=== PATIENT | female | born 1965 | race Caucasian/White ===

== ENCOUNTER 2016-11-14 09:39 | Emergency (ER) | payer SELFPAY ==
--- NOTE | 2016-11-14 11:59 | ED ORDER SUMMARY ---
..... Patient: GWYN GUILLEN OrderSheet [facility] VisitID: [id number] [place] [address] 51y, F Registration Date/Time: 11/14/2016 ORDER SHEET Weight: 56.6 kg (stated) Allergies: No Known Drug Allergy GENERAL ORDERS: CBC w Diff Urgent (10:11/14/2016 Chris WILSON) (Ack 10:04 Stacia) (10:22 SRoberts R.N.) CMP Urgent (:11/14/2016 Chris WILSON) (Ack 10:04 Stacia) (10:22 SRoberts R.N.) Amylase Urgent (:11/14/2016 Chris WILSON) (Ack 10:04 Stacia) (10:22 SRoberts R.N.) Lipase Urgent (:11/14/2016 Chris WILSON) (Ack 10:04 Stacia) (10:22 SRoberts R.N.) UA-Culture if indicated Urgent (:11/14/2016 Chris WILSON) (Ack 10:04 Stacia) (11:32 LWhalen R.N.) PT with INR Urgent (:11/14/2016 Chris WILSON) (Ack 10:04 Stacia) (10:22 SRoberts R.N.) PTT Urgent (10:11/14/2016 Chris WILSON) (Ack 10:04 Stacia) (10:22 SRoberts R.N.) Type & Screen Urgent (10:11/14/2016 Chris WILSON) (Ack 10:04 Stacia) (10:22 SRoberts R.N.) Ethyl Alcohol Urgent (10:11/14/2016 Chris WILSON) (Ack 10:30 Stacia) (11:32 LWhalen R.N.) MEDICATION ORDERS: GI Cocktail WHITE PO 30 mL with Lidocaine Viscous Mouth/Throat 15 mL, Maalox Plus Oral 15 mL (11:17 11/14/2016 Chris WILSON) (11:33 LWhalen R.N.) IV FLUIDS: IV Saline Lock (10:11/14/2016 Chris WILSON) (10:23 Dai Tirado.N.) Protonix IVP 80mg 80 mg (Mix in NS 20ml over 4min) (10:11/14/2016 Chris WILSON) (10:43 Juan J R.N.) IV Saline Lock (2 large bore IV sites) (10:11/14/2016 Chris WILSON) (Ack 10:44 Juan J R.N.) (11:33 Juan J R.N.) ORDER SHEET NOTES: [Electronically signed by Alexandra Sellers R.N. (13:05 11/14/2016)] [Electronically signed by Wing Adame MD (18:59 11/14/2016)] [Electronically locked/signed by Alexandra Sellers R.N. (13:11/14/2016)]
--- NOTE | 2016-11-14 11:59 | ED CLINICAL REPORT ---
Clinical Report - Physicians/Mid Levels [facility] [address] [place] [address] 11/14/2016 9:38 Patient: GWYN GUILLEN Time Seen: 10:00. Arrived- By private vehicle. Historian- patient. HISTORY OF PRESENT ILLNESS Chief Complaint: ABDOMINAL PAIN. At its maximum, severity described as 7 / 10. When seen in the E.D., severity described as 6 / 10. Modifying factors- worsened by food and swallowing. It is described as burning. No radiation. It is described as located in the epigastric area and in the upper abdomen. This started about 1 week ago and is still present. It was gradual in onset and has been intermittent and waxing/waning. No nausea, vomiting or diarrhea. She has had loss of appetite. No recent travel. Similar symptoms previously: Several times. REVIEW OF SYSTEMS The patient has had constipation and a cough and headache. Last bowel movement: 3 days ago. She has had mildly bloody stools. They have occurred several times and have been associated with bright red blood on the paper. No chills, fever, sweats, calf pain or chest pain. No difficulty breathing, pedal edema, palpitations or urinary problems. All systems otherwise negative, except as recorded above. PAST HISTORY PCP - Goncalves at the [facility]. SOCIAL HISTORY Current every day heavy tobacco smoker (cigarette)- 1 pack per day. Heavy alcohol use; consumes a large amount of beer daily. Patient is alcoholic. History of drug use: marijuana. Residence: [facility] she lives with spouse. FAMILY HISTORY Emphysema in first-degree relative (mother and father). ADDITIONAL NOTES The nursing notes have been reviewed. PHYSICAL EXAM Vital Signs: 11/14/2016 09:48 BP: 160/105. HR: 118. RR: 20. O2 saturation: 97%. Temp: 98.1 F. Appearance: Alert. Eyes: Pupils equal, round and reactive to light. ENT: Pharynx normal. Neck: Neck supple. CVS: Normal heart rate and rhythm. Heart sounds normal. Respiratory: No respiratory distress. Breath sounds normal. Abdomen: Soft and nontender. Moderate tenderness in the epigastric area. No organomegaly. No mass. Back: Normal inspection. Skin: Normal skin color. Normal skin turgor. Extremities: Extremities exhibit normal ROM. No calf tenderness. No lower extremity edema. LABS, X-RAYS, AND EKG Laboratory Tests: UA-Culture if indicated: (MALOU: 11/14/2016 10:50) ( [facility] 11/14/2016 11:06) Final results Test Result Flag Units (Reference) URINE COLOR YELLOW URINE APPEARANCE CLEAR URINE GLUCOSE NEGATIVE (NEGATIVE) URINE BILIRUBIN NEGATIVE (NEGATIVE) URINE KETONE TRACE (NEGATIVE) URINE SPECIFIC GRAVITY 1.010 (1.010-1.030) URINE PH 5.5 (5.0-8.0) URINE PROTEIN NEGATIVE (NEGATIVE) URINE UROBILINOGEN 0.2 EU/dL (0.2-1.0) URINE NITRITE NEGATIVE (NEGATIVE) URINE BLOOD 1+ (NEGATIVE) URINE LEUK ESTERASE NEGATIVE (NEGATIVE) URINE RBC 0-1 rbc/hpf (0-1) URINE WBC 0-1 wbc/hpf (0-1) URINE EPITHELIAL CELLS 0-1 EPI/hpf (0-5) URINE BACTERIA TRACE (<1+) (NONE SEEN) URINE COMMENT CULT NOT INDICATED 1-3 HYALINE CASTURINE CULTURES ARE SET-UP BASED ON THE FOLLOWING CRITERIA:POSITIVE NITRITEPOSITIVE LEUKOCYTE ESTERASEGREATER THAN 10 WHITE BLOOD CELLSMODERATE (2+) OR GREATER BACTERIA CBC w Diff: (MALOU: 11/14/2016 10:17) ( [facility] 11/14/2016 10:41) Final results Test Result Flag Units (Reference) WHITE BLOOD COUNT 12.2 H K/uL (4.5-11.5) RED BLOOD COUNT 4.30 M/uL (4.00-5.20) HEMOGLOBIN 15.6 gm/dL (12.0-16.0) HEMATOCRIT 45.5 % (36.0-46.0) MEAN CELL VOLUME 106 H fL (80-100) MEAN CORPUSCULAR HGB 36 H pg (26-34) MEAN CORPUSCULAR HGB CONC 34 g/dL (31-37) RED CELL DISTRIBUTION WIDTH 15.4 H % (11.6-14.8) PLATELET COUNT 158 K/uL (150-400) NEUTROPHIL % 73.2 % (50-75) LYMPH % 20.2 L % (25-40) MONO % 6.0 % (3-14) EOSINOPHIL % 0.1 % (0-4) BASOPHIL % 0.5 % (0-2) PT with INR: (MALOU: 11/14/2016 10:17) ( [facility] 11/14/[facility] 10:47) Final results Test Result Flag Units (Reference) INR 0.9 (0.8-1.2) Low Intensity Therapy: INR 1.5-2.0 PT range 18.5-23.1Mod.Intensity Therapy: INR 2.0-3.0 PT range 23.1-31.5High Intensity Therapy: INR 2.5-3.5 PT range 27.4-35.5High Intensity Therapy 2: INR 3.0-4.0 PT range 31.5-39.3 APTT 27 SECONDS (24-34) CMP: (MALOU: 11/14/2016 10:17) ( [facility] 11/14/2016 11:19) Final results Test Result Flag Units (Reference) GLUCOSE 84 mg/dL (70-110) BUN 8 mg/dL (7-18) CREATININE 0.7 mg/dL (0.6-1.3) Estimated GFR >60 mL/min Estimated GFR- >60 mL/min Note: Persistent reduction over 3 months in eGFR<60 mL/min/1.73 m2 defines CKD. Patients with eGFR values>=60 mL/min/1.73 m2 may also have CKD if evidence ofpersistent proteinuria. Additional information may be foundat www.kidney.org. SODIUM 142 mmol/L (136-145) POTASSIUM 3.8 mmol/L (3.5-5.1) CHLORIDE 105 mmol/L (98-107) CARBON DIOXIDE 22 mmol/L (21-32) CALCIUM 7.4 L mg/dL (8.5-10.1) TOTAL PROTEIN 6.6 g/dL (6.4-8.2) ALBUMIN 3.6 g/dL (3.3-5.0) BILIRUBIN, TOTAL 0.3 mg/dL (0.0-1.0) ALKALINE PHOSPHATASE 63 U/L (46-116) AST (SGOT) 43 H U/L (15-37) ALT (SGPT) 21 U/L (12-78) LIPASE 60 L U/L (73-393) AMYLASE 37 U/L (25-115) ETHYL ALCOHOL 229 H mg/dL (3-10) . PROGRESS AND PROCEDURES Course of Care: Patient is stable. Patient/family counseled. Old medical records reviewed. Disposition: Discharged. Condition: stable. CLINICAL IMPRESSION Alcoholic gastritis Substance abuse- alcohol. External hemorrhoids INSTRUCTIONS Drink plenty of fluids. No alcohol. Seek medical help to quit drinking. Warnings: Further evaluation is necessary. GENERAL WARNINGS: Return or contact your physician immediately if your condition worsens or changes unexpectedly, if not improving as expected, or if other problems arise. Prescription Medications: Omeprazole 20 mg capsules: Take 1 orally once daily. Dispense fifteen (15). No refills. Follow-up: Follow up with your doctor Thursday in three days. Call for an appointment. Understanding of the discharge instructions verbalized by patient. (Electronically signed by Wing Adame MD 11/14/2016 18:59)
--- NOTE | 2016-11-14 11:59 | ED NURSING NOTES ---
Clinical Report - Nurses [facility] [address] [place] [address] 11/14/2016 9:38 Patient: GWYN GUILLEN TRIAGE Triage time 09:48 Nov 14 2016. Acuity: LEVEL 3. Chief Complaint: HEADACHE, DIZZINESS, WEAKNESS, CONSTIPATION, ABDOMINAL PAIN and BLOODY STOOLS (Abdominal pain). RIGO COMA SCORE: [place] Coma Scale: 15- eyes open spontaneously (4); best verbal response- oriented x 4 (5); best motor response- obeys commands (6). --09:54 Daniel Chaparro R.N. 09:48 11/14/16. BP: 160/105. HR: 118. RR: 20. O2 saturation: 97%. Temp: 98.1 F. Pain level now 7/10. --09:54 Daniel Chaparro R.N. Weight: 56.6 kg stated. Height/Length: 61 inches Per Patient. BMI: 23.6. --09:49 Daniel Chaparro R.N. Medications Citalopram Hydrobromide Oral. --09:53 Daniel Chaparro R.N. Lisinopril Oral. --09:53 Daniel Chaparro R.N. AmLODIPine Besylate Oral. --09:54 Daniel Chaparro R.N. Atorvastatin Calcium Oral. --09:54 Daniel Chaparro R.N. Allergies No Known Drug Allergy. --09:52 Daniel Chaparro R.N. History Arrived by private vehicle. Historian: patient. Accompanied by family. Onset. (Past three days). ( Has been on a drinking binger for three days having emotional problems and severe abdominal pains with red discharge from buttocks no stool in three days.). PAST MEDICAL HX: Immunizations: up-to-date. SOCIAL HX: Current every day heavy tobacco smoker (cigarette)- 1 pack per day. Heavy alcohol use; consumes beer daily. History of drug use: marijuana. SELF HARM ASSESSMENT: A self harm assessment was performed. The patient answered "yes" to the question "Have you recently felt down, depressed, or hopeless?" and "Have you noticed less interest or pleasure in doing things?" and "no" to the question "Do you have thoughts of harming or killing yourself?" and "Are you here because you tried to hurt yourself?". FALL RISK ASSESSMENT: Fall risk assessment completed. No fall risk identified. NUTRITIONAL RISK ASSESSMENT: The nutritional risk assessment revealed no deficiencies. FUNCTIONAL ASSESSMENT: Functional assessment: no impairments noted. LEARNING NEEDS ASSESSMENT: The learning needs assessment revealed no barriers. ABUSE ASSESSMENT: Abuse assessment: (yes) The patient was asked "Do you feel safe in your home?". SKIN INTEGRITY ASSESSMENT: Skin integrity risk assessment completed. No skin integrity risk identified. --09:54 Daniel Chaparro R.N. PROBLEMS: Hyperlipidemia. Thyroid Disease. Contusion. Fall. Alcoholic Liver Disease. Peptic Ulcer Disease. Abdominal Pain. Bronchitis. Rectal Bleed. Tension-Type Headache. Alcohol Intoxication. Depression. Suicidal Ideation. Gastritis. Pancreatitis. Rib Fracture. Tetanus Status. LNMP - Last Normal Menstrual Period. Cervical Cancer. Carotid Artery Disease. Lifestyle / Substance Problems. Hypertension. Immunizations. Nervous breakdown. --09:54 Daniel Chaparro R.N. ADDITIONAL SURGERIES: Cervical conization. . --09:54 Daniel Chaparro R.N. Interventions ID band on patient. --09:54 Daniel Chaparro R.N. PHYSICAL ASSESSMENT Ambulatory to room. GENERAL / NEURO / PSYCH: Alert. Oriented X 4. Appears anxious. HEENT: Pupils equal, round and reactive to light. No facial asymmetry noted. ( States headache). Mucous membranes are pink. RESPIRATORY: Respirations not labored. Chest nontender. Breath sounds within normal limits. ( chronic cough from smoking). CVS: Normal sinus rhythm noted. Capillary refill less than 2 seconds. Pulses within normal limits. GI / : ( No BM in three days having blood tinged underwear and when she wipes from). Abdomen soft and normal bowel sounds. Abdominal tenderness. SKIN: Skin intact. Skin is warm and dry. Normal skin turgor. --10:08 Daniel Chaparro R.N. NURSING PROGRESS NOTES The initial plan of care for this patient includes an assessment with efforts to address patient positioning, appropriate ambient lighting and comfortable environmental temperature; impairment of the gastrointestinal and neurological system. Pulse oximeter and NIBP monitor placed on patient. Patient gowned. Head of bed elevated 60 degrees. Call light placed in reach. Side rails up x 1. Bed placed in lowest position. Brakes of bed on. --10:09 Daniel Chaparro R.N. 10:22 11/14/2016 Site #1 started via IV in the right hand with an 22g angiocath, with good blood return; two attempts. Saline lock flushed with 10 mL saline. --10:22 Alexandra Sellers R.N. 10:43 11/14/2016 PROTONIX (Pantoprazole Sodium) IVP 80 mg given over 10 minute(s) via site #1. Allergies verified and confirmed 5 rights. IV patency established. IV site checked: no pain, redness, or swelling. IV flushed thoroughly pre- and post-medication administration. --10:43 Daniel Chaparro R.N. 10:45 11/14/16. BP: 134/90. HR: 105. RR: 18. O2 saturation: 98%. Pain level now: 12/11. 10:15 11/14/16. BP: 138/78. HR: 105. RR: 20. O2 saturation: 96%. 10:00 11/14/16. BP: 136/98. HR: 117. RR: 20. O2 saturation: 96%. --11:06 Daniel Chaparro R.N. 11:18 11/14/2016 Site #2 started via IV in the right forearm with an 20g angiocath, with aseptic technique and good blood return; three attempts. Saline lock flushed with 10 mL saline. --11:33 Daniel Chaparro R.N. 11:33 11/14/2016 GI COCKTAIL WHITE (Simethicone) PO Oral Suspension 30 mL given. Allergies verified and confirmed 5 rights. --11:33 Daniel Chaparro R.N. DISPOSITION / DISCHARGE 12:10. Condition at departure: improved. No learning barriers present. Discharge instructions provided and reviewed with the patient and spouse. Reviewed medication(s) side effects, precautions, dosing and course information. Prescription(s) given to the patient. Patient verbalized understanding. Written instructions provided in Azeri. The patient was discharged home and accompanied by spouse. She left the Emergency Department ambulatory and via private vehicle. Spouse driving. Medication list reviewed and validated. FALL RISK ASSESSMENT: Fall risk assessment completed. No fall risk identified. --13:04 Alexandra Sellers R.N. 12:10 11/14/16. BP: 140/78. HR: 88. RR: 18. O2 saturation: 97% on room air. Temp: deferred. Pain level now: 06/13. 10:45 11/14/16. BP: 134/90. HR: 105. RR: 18. O2 saturation: 98%. Pain level now: 12/11. 10:15 11/14/16. BP: 138/78. HR: 105. RR: 20. O2 saturation: 96%. 10:00 11/14/16. BP: 136/98. HR: 117. RR: 20. O2 saturation: 96%. 09:48 11/14/16. BP: 160/105. HR: 118. RR: 20. O2 saturation: 97%. Temp: 98.1 F. Pain level now 11/10. --13:04 Alexandra Sellers R.N. Locked/Released at 11/14/2016 13:05 by Alexandra Sellers R.N.
--- NOTE | 2016-11-14 11:59 | ED ORDER SUMMARY ---
..... Patient: GWYN GUILLEN OrderSheet [facility] VisitID: [id number] [place] [address] 51y, F Registration Date/Time: 11/14/2016 ORDER SHEET Weight: 56.6 kg (stated) Allergies: No Known Drug Allergy GENERAL ORDERS: CBC w Diff Urgent (10:11/14/2016 Chris WILSON) (Ack 10:04 Stacia) (10:22 SRoberts R.N.) CMP Urgent (:11/14/2016 Chris WILSON) (Ack 10:04 Stacia) (10:22 SRoberts R.N.) Amylase Urgent (:11/14/2016 Chris WILSON) (Ack 10:04 Stacia) (10:22 SRoberts R.N.) Lipase Urgent (:11/14/2016 Chris WILSON) (Ack 10:04 Stacia) (10:22 SRoberts R.N.) UA-Culture if indicated Urgent (:11/14/2016 Chris WILSON) (Ack 10:04 Stacia) (11:32 LWhalen R.N.) PT with INR Urgent (:11/14/2016 Chris WILSON) (Ack 10:04 Stacia) (10:22 SRoberts R.N.) PTT Urgent (10:11/14/2016 Chris WILSON) (Ack 10:04 Stacia) (10:22 SRoberts R.N.) Type & Screen Urgent (10:11/14/2016 Chris WILSON) (Ack 10:04 Stacia) (10:22 SRoberts R.N.) Ethyl Alcohol Urgent (10:11/14/2016 Chris WILSON) (Ack 10:30 Stacia) (11:32 LWhalen R.N.) MEDICATION ORDERS: GI Cocktail WHITE PO 30 mL with Lidocaine Viscous Mouth/Throat 15 mL, Maalox Plus Oral 15 mL (11:17 11/14/2016 Chris WILSON) (11:33 LWhalen R.N.) IV FLUIDS: IV Saline Lock (10:11/14/2016 Chris WILSON) (10:23 Dai Tirado.N.) Protonix IVP 80mg 80 mg (Mix in NS 20ml over 4min) (10:11/14/2016 Chris WILSON) (10:43 Juan J R.N.) IV Saline Lock (2 large bore IV sites) (10:11/14/2016 Chris WILSON) (Ack 10:44 Juan J R.N.) (11:33 Juan J R.N.) ORDER SHEET NOTES: [Electronically signed by Alexandra Sellers R.N. (13:05 11/14/2016)] [Electronically signed by Wing Adame MD (18:59 11/14/2016)] [Electronically locked/signed by Alexandra Sellers R.N. (13:11/14/2016)]
--- NOTE | 2016-11-14 11:59 | ED CLINICAL REPORT ---
Clinical Report - Physicians/Mid Levels [facility] [address] [place] [address] 11/14/2016 9:38 Patient: GWYN GUILLEN Time Seen: 10:00. Arrived- By private vehicle. Historian- patient. HISTORY OF PRESENT ILLNESS Chief Complaint: ABDOMINAL PAIN. At its maximum, severity described as 7 / 10. When seen in the E.D., severity described as 6 / 10. Modifying factors- worsened by food and swallowing. It is described as burning. No radiation. It is described as located in the epigastric area and in the upper abdomen. This started about 1 week ago and is still present. It was gradual in onset and has been intermittent and waxing/waning. No nausea, vomiting or diarrhea. She has had loss of appetite. No recent travel. Similar symptoms previously: Several times. REVIEW OF SYSTEMS The patient has had constipation and a cough and headache. Last bowel movement: 3 days ago. She has had mildly bloody stools. They have occurred several times and have been associated with bright red blood on the paper. No chills, fever, sweats, calf pain or chest pain. No difficulty breathing, pedal edema, palpitations or urinary problems. All systems otherwise negative, except as recorded above. PAST HISTORY PCP - Goncalves at the [facility]. SOCIAL HISTORY Current every day heavy tobacco smoker (cigarette)- 1 pack per day. Heavy alcohol use; consumes a large amount of beer daily. Patient is alcoholic. History of drug use: marijuana. Residence: [facility] she lives with spouse. FAMILY HISTORY Emphysema in first-degree relative (mother and father). ADDITIONAL NOTES The nursing notes have been reviewed. PHYSICAL EXAM Vital Signs: 11/14/2016 09:48 BP: 160/105. HR: 118. RR: 20. O2 saturation: 97%. Temp: 98.1 F. Appearance: Alert. Eyes: Pupils equal, round and reactive to light. ENT: Pharynx normal. Neck: Neck supple. CVS: Normal heart rate and rhythm. Heart sounds normal. Respiratory: No respiratory distress. Breath sounds normal. Abdomen: Soft and nontender. Moderate tenderness in the epigastric area. No organomegaly. No mass. Back: Normal inspection. Skin: Normal skin color. Normal skin turgor. Extremities: Extremities exhibit normal ROM. No calf tenderness. No lower extremity edema. LABS, X-RAYS, AND EKG Laboratory Tests: UA-Culture if indicated: (MALOU: 11/14/2016 10:50) ( [facility] 11/14/2016 11:06) Final results Test Result Flag Units (Reference) URINE COLOR YELLOW URINE APPEARANCE CLEAR URINE GLUCOSE NEGATIVE (NEGATIVE) URINE BILIRUBIN NEGATIVE (NEGATIVE) URINE KETONE TRACE (NEGATIVE) URINE SPECIFIC GRAVITY 1.010 (1.010-1.030) URINE PH 5.5 (5.0-8.0) URINE PROTEIN NEGATIVE (NEGATIVE) URINE UROBILINOGEN 0.2 EU/dL (0.2-1.0) URINE NITRITE NEGATIVE (NEGATIVE) URINE BLOOD 1+ (NEGATIVE) URINE LEUK ESTERASE NEGATIVE (NEGATIVE) URINE RBC 0-1 rbc/hpf (0-1) URINE WBC 0-1 wbc/hpf (0-1) URINE EPITHELIAL CELLS 0-1 EPI/hpf (0-5) URINE BACTERIA TRACE (<1+) (NONE SEEN) URINE COMMENT CULT NOT INDICATED 1-3 HYALINE CASTURINE CULTURES ARE SET-UP BASED ON THE FOLLOWING CRITERIA:POSITIVE NITRITEPOSITIVE LEUKOCYTE ESTERASEGREATER THAN 10 WHITE BLOOD CELLSMODERATE (2+) OR GREATER BACTERIA CBC w Diff: (MALOU: 11/14/2016 10:17) ( [facility] 11/14/2016 10:41) Final results Test Result Flag Units (Reference) WHITE BLOOD COUNT 12.2 H K/uL (4.5-11.5) RED BLOOD COUNT 4.30 M/uL (4.00-5.20) HEMOGLOBIN 15.6 gm/dL (12.0-16.0) HEMATOCRIT 45.5 % (36.0-46.0) MEAN CELL VOLUME 106 H fL (80-100) MEAN CORPUSCULAR HGB 36 H pg (26-34) MEAN CORPUSCULAR HGB CONC 34 g/dL (31-37) RED CELL DISTRIBUTION WIDTH 15.4 H % (11.6-14.8) PLATELET COUNT 158 K/uL (150-400) NEUTROPHIL % 73.2 % (50-75) LYMPH % 20.2 L % (25-40) MONO % 6.0 % (3-14) EOSINOPHIL % 0.1 % (0-4) BASOPHIL % 0.5 % (0-2) PT with INR: (MALOU: 11/14/2016 10:17) ( [facility] 11/14/2016 10:47) Final results Test Result Flag Units (Reference) INR 0.9 (0.8-1.2) Low Intensity Therapy: INR 1.5-2.0 PT range 18.5-23.1Mod.Intensity Therapy: INR 2.0-3.0 PT range 23.1-31.5High Intensity Therapy: INR 2.5-3.5 PT range 27.4-35.5High Intensity Therapy 2: INR 3.0-4.0 PT range 31.5-39.3 APTT 27 SECONDS (24-34) CMP: (MALOU: 11/14/2016 10:17) ( [facility] 11/14/2016 11:19) Final results Test Result Flag Units (Reference) GLUCOSE 84 mg/dL (70-110) BUN 8 mg/dL (7-18) CREATININE 0.7 mg/dL (0.6-1.3) Estimated GFR >60 mL/min Estimated GFR- >60 mL/min Note: Persistent reduction over 3 months in eGFR<60 mL/min/1.73 m2 defines CKD. Patients with eGFR values>=60 mL/min/1.73 m2 may also have CKD if evidence ofpersistent proteinuria. Additional information may be foundat www.kidney.org. SODIUM 142 mmol/L (136-145) POTASSIUM 3.8 mmol/L (3.5-5.1) CHLORIDE 105 mmol/L (98-107) CARBON DIOXIDE 22 mmol/L (21-32) CALCIUM 7.4 L mg/dL (8.5-10.1) TOTAL PROTEIN 6.6 g/dL (6.4-8.2) ALBUMIN 3.6 g/dL (3.3-5.0) BILIRUBIN, TOTAL 0.3 mg/dL (0.0-1.0) ALKALINE PHOSPHATASE 63 U/L (46-116) AST (SGOT) 43 H U/L (15-37) ALT (SGPT) 21 U/L (12-78) LIPASE 60 L U/L (73-393) AMYLASE 37 U/L (25-115) ETHYL ALCOHOL 229 H mg/dL (3-10) . PROGRESS AND PROCEDURES Course of Care: Patient is stable. Patient/family counseled. Old medical records reviewed. Disposition: Discharged. Condition: stable. CLINICAL IMPRESSION Alcoholic gastritis Substance abuse- alcohol. External hemorrhoids INSTRUCTIONS Drink plenty of fluids. No alcohol. Seek medical help to quit drinking. Warnings: Further evaluation is necessary. GENERAL WARNINGS: Return or contact your physician immediately if your condition worsens or changes unexpectedly, if not improving as expected, or if other problems arise. Prescription Medications: Omeprazole 20 mg capsules: Take 1 orally once daily. Dispense fifteen (15). No refills. Follow-up: Follow up with your doctor Thursday in three days. Call for an appointment. Understanding of the discharge instructions verbalized by patient. (Electronically signed by Wing Adame MD 11/14/2016 18:59)
--- NOTE | 2016-11-14 18:59 | ED DISCHARGE INSTRUCTIONS ---
Patient: GWYN GUILLEN General Instructions [facility] VisitID: [id number] [place] [address] 51y, F Registration Date/Time: 11/14/2016 Alcoholic gastritis Substance abuse- alcohol. External hemorrhoids INSTRUCTIONS Drink plenty of fluids. No alcohol. Seek medical help to quit drinking. Warnings: Further evaluation is necessary. GENERAL WARNINGS: Return or contact your physician immediately if your condition worsens or changes unexpectedly, if not improving as expected, or if other problems arise. Prescription Medications: Omeprazole 20 mg capsules: Take 1 orally once daily. Dispense fifteen (15). No refills. Follow-up: Follow up with your doctor Thursday in three days. Call for an appointment. Understanding of the discharge instructions verbalized by patient. ADDITIONAL INFORMATION Gastritis (Adult) Gastritis is an irritation of the stomach lining. It can be acute (recent) or chronic (lasting a long time). Gastritis can be caused by overuse of alcohol or anti-inflammatory medications (such as aspirin, ibuprofen, or prednisone). H pyloriinfection can also cause chronic gastritis. Gastritis can cause a dull ache or burning pain in the upper abdomen. Other symptoms include nausea, vomiting, loss of appetite, and belching or bloating. Blood in the vomit or stools (red or black) is a sign of bleeding in the stomach. This requires immediate medical attention. Tests for H pyloriare used to screen for bacterial infection. If no infection is found, gastritis can be treated by stopping the cause and treating with antacids plus an acid kelly medication. If H pylori infection is found, antibiotics will also be prescribed. Persons 55 years and older may undergo other tests before treatment is started. Two common tests are used to evaluate your symptoms. An upper GI series is an x-ray taken after you drink a chalky liquid called barium. This coats the stomach and allows the doctor to view any problems in the stomach on the x-ray. Another test is called endoscopy, during which a long thin tube called an endoscope is passed down your throat to the stomach. A camera at the end of the scope allows the doctor to view inside the stomach to check the cause of your symptoms. Home Care: Take the prescribed acid kelly medication for the full course of treatment even if you begin to feel better sooner. This medication can take up to several days to fully control your symptoms. If you cant afford the prescribed medication, you can try ulnf-ipv-uaeauzy acid blockers, such as Pepcid AC, Tagamet, Zantac, or Aciphex. If these do not relieve your symptoms, a stronger acid-kelly can be tried, such as Prilosec OTC. If you have been prescribed an antibiotic to treat H pyloriinfection, finish the full course of medication. Do so even if you begin to feel better sooner. If you stop the medication too soon, the infection can return and be harder to treat. You can use antacids, such as Tums, Rolaids, Mylanta, or Maalox, for pain. This will be useful the first few days after starting acid blockers when the blockers havent started working yet. Follow the directions on the label. Liquid antacids may work better than tablets. Note that antacids can interfere with absorption of certain medications. Specifically, do not take Tagamet (cimetidine), Zantac (ranitidine), or Carafate (sucralfate) within 1 hour of taking an antacid. Talk with your pharmacist if you have any questions. Symptoms of gastritis can be worsened by certain foods. Limit or avoid fatty, fried, and spicy foods, as well as coffee, chocolate, mint, and foods with high acid content such as tomatoes and citrus fruit and juices (orange, grapefruit, lemon). Avoid alcohol, caffeine, and tobacco, which can delay healing. Avoid aspirin and anti-inflammatory medications such as ibuprofen (Advil, Motrin) and naproxen (Naprosyn, Aleve). Acetaminophen (Tylenol) is safe to use. Do not take more than the amount listed on the label. Follow Up with your doctor, or as advised by our staff. Further testing may be needed. If you do not improve over the next 4 days, contact your doctor. If you had an x-ray, CT scan, or ECG (electrocardiogram), it will be reviewed by a specialist. Youll be notified of any new findings that affect your care. Get Prompt Medical Attention if any of the following occur: Stomach pain gets worse or moves to the lower right abdomen (appendix area) Chest pain appears or gets worse, or spreads to the back, neck, shoulder, or arm Frequent vomiting (cant keep down liquids) Blood in the stool or vomit (red or black in color) Feeling weak or dizzy, fainting, or trouble breathing Fever of 100.4F (38C) or higher, or as directed by your healthcare provider Alcohol Intoxication Alcohol intoxication occurs when you drink alcohol faster than your liver can remove it from your system. Alcohol intoxication affects your judgment and coordination. Very high blood alcohol levels can cause coma, very slow breathing and even . If you drink alcohol every day, this may gradually cause permanent damage to your liver, brain, heart, pancreas and other organs. Alcohol use during may cause permanent damage to the growing baby. Home Care: Do not drink any more alcohol. DO NOT DRIVE until all effects of the alcohol have worn off. Get lots of rest over the next few days. Drink plenty of water and other non-alcoholic liquids. Try to eat regular meals. If you have been drinking heavily on a daily basis, you may go through alcohol withdrawl. This is also called the shakes or DTs. The usual symptoms last 3 to 4 days and may include nervousness, shakiness, nausea, sweating or sleeplessness. During this time, it is best that you stay with family or friends who can help and support you. You can also admit yourself to a residential detox program. If your symptoms are severe, contact your doctor for medicines to help. Follow Up: If alcohol is causing a problem in your life, these and other organizations can help you: Alcoholics Anonymous offers support through a self-help fellowship. There are no dues or fees. See the Yellow Pages and call for time and place of meetings. www.aa.org [employer] offers support to families of alcohol users. 289.886.9170 www.al-anon.org [employer] [place] On Alcoholism And Drug Dependence 285-802-1219 www.ncadd.org There are also inpatient or residential alcohol detox programs. Check the Internet or phonebook Yellow Pages under Drug Abuse & Treatment Centers. Get Prompt Medical Attention if any of the following occur: there) Hemorrhoids,External A hemorrhoid is a local swelling of the veins around the rectum. These most often occur from repeated forceful straining during bowel movements or heavy lifting. It may also occur in the last few months of . A hemorrhoid feels like a soft lump. It may itch from time to time. When it is inflamed it becomes hard and very painful. Home Care: SITZ BATHS: Sit in a tub filled with about 6 inches of hot water. Allow the water to run in order to keep it hot for a total of 10-15 minutes. Repeat this three times a day until pain is relieved. Keep your stools soft to avoid the need to strain when having a bowel movement. Unless another medicine was prescribed, try the following: IF YOU ARE CONSTIPATED: You may use ckfq-inc-fkwpata laxatives such as MILK OF MAGNESIA (mild acting) or, DULCOLAX (if stronger action is needed). IF YOU ARE NOT CONSTIPATED but stools are hard, try taking Colace (docusate sodium) which is a stool softener. This will soften stools without producing diarrhea. Drinking extra fluids may also help. The use of creams applied to the hemorrhoid itself, such as ANUSOL or PREPARATION H, will be helpful to reduce pain and itching, and speed healing. Prevention: Avoid straining on the toilet by keeping stools soft. Increasing FIBER in your diet (fruits, cereals, vegetables and grains) will promote healthy bowel movement. If this is not working, you may use METAMUCIL and similar products. These are ndhw-fkl-jykqdkz fiber supplements. You must drink extra fluids when taking these to avoid constipation. Follow Up with your doctor if you do not begin to respond to the above treatment within the next few days. Get Prompt Medical Attention if any of the following occur: Large amount of rectal bleeding (more than 1 cup of blood in 24 hours) Increasing rectal pain or rectal pain that continues for more than three days of treatment Weakness, dizziness or fainting Vomiting blood (red or black color) Omeprazole Magnesium Gastro-resistant tablet What is this medicine? OMEPRAZOLE (oh ME pray zol) prevents the production of acid in the stomach. It is used to treat the symptoms of heartburn. You can buy this medicine without a prescription. This product is not for long-term use, unless otherwise directed by your doctor or health senior care specialist. How should I use this medicine? Take this medicine by mouth. Follow the directions on the product label. If you are taking this medicine without a prescription, take one tablet every day. Do not use for longer than 14 days or repeat a course of treatment more often than every 4 months unless directed by a doctor or healthcare professional. Take your dose at regular intervals every 24 hours. Swallow the tablet whole with a drink of water. Do not crush, break or chew. This medicine works best if taken on an empty stomach 30 minutes before breakfast. If you are using this medicine with the prescription of your doctor or healthcare professional, follow the directions you were given. Do not take your medicine more often than directed. Talk to your surface supply breathing apparatus regarding the use of this medicine in children. Special care may be needed. What side effects may I notice from receiving this medicine? Side effects that you should report to your doctor or health senior care specialist as soon as possible: allergic reactions like skin rash, itching or hives, swelling of the face, lips, or tongue bone, muscle or joint pain breathing problems chest pain or chest tightness dark yellow or brown urine diarrhea dizziness fast, irregular heartbeat feeling faint or lightheaded fever or sore throat muscle spasm palpitations redness, blistering, peeling or loosening of the skin, including inside the mouth seizures tremors unusual bleeding or bruising unusually weak or tired yellowing of the eyes or skin Side effects that usually do not require medical attention (Report these to your doctor or health senior care specialist if they continue or are bothersome.): constipation dry mouth headache loose stools nausea What may interact with this medicine? Do not take this medicine with any of the following medications: atazanavir clopidogrel nelfinavir This medicine may also interact with the following medications: ampicillin certain medicines for anxiety or sleep certain medicines that treat or prevent blood clots like warfarin cyclosporine diazepam digoxin disulfiram iron salts phenytoin prescription medicine for fungal or yeast infection like itraconazole, ketoconazole, voriconazole saquinavir tacrolimus What if I miss a dose? If you miss a dose, take it as soon as you can. If it is almost time for your next dose, take only that dose. Do not take double or extra doses. Where should I keep my medicine? Keep out of the reach of children. Store at room temperature between 20 and 25 degrees C (68 and 77 degrees F). Protect from light and moisture. Throw away any unused medicine after the expiration date. What should I tell my health care provider before I take this medicine? They need to know if you have any of these conditions: black or bloody stools chest pain difficulty swallowing have had heartburn for over 3 months have heartburn with dizziness, lightheadedness or sweating liver disease stomach pain unexplained weight loss vomiting with blood wheezing an unusual or allergic reaction to omeprazole, other medicines, foods, dyes, or preservatives or trying to get breast-feeding What should I watch for while using this medicine? It can take several days before your heartburn gets better. Check with your doctor or health senior care specialist if your condition does not start to get better, or if it gets worse. Do not treat diarrhea with over the counter products. Contact your doctor if you have diarrhea that lasts more than 2 days or if it is severe and watery. Do not treat yourself for heartburn with this medicine for more than 14 days in a row. You should only use this medicine for a 2-week treatment period once every 4 months. If your symptoms return shortly after your therapy is complete, or within the 4 month time frame, call your doctor or health senior care specialist. You have been given the following additional information: Gastritis (Adult) Alcohol Intoxication Hemorrhoids Omeprazole Magnesium Gastro-resistant tablet (Electronically signed by Wing Adame MD 11/14/2016 18:59)
--- NOTE | 2016-11-14 18:59 | ED DISCHARGE INSTRUCTIONS ---
Patient: GWYN GUILLEN General Instructions [facility] VisitID: [id number] [place] [address] 51y, F Registration Date/Time: 11/14/2016 Alcoholic gastritis Substance abuse- alcohol. External hemorrhoids INSTRUCTIONS Drink plenty of fluids. No alcohol. Seek medical help to quit drinking. Warnings: Further evaluation is necessary. GENERAL WARNINGS: Return or contact your physician immediately if your condition worsens or changes unexpectedly, if not improving as expected, or if other problems arise. Prescription Medications: Omeprazole 20 mg capsules: Take 1 orally once daily. Dispense fifteen (15). No refills. Follow-up: Follow up with your doctor Thursday in three days. Call for an appointment. Understanding of the discharge instructions verbalized by patient. ADDITIONAL INFORMATION Gastritis (Adult) Gastritis is an irritation of the stomach lining. It can be acute (recent) or chronic (lasting a long time). Gastritis can be caused by overuse of alcohol or anti-inflammatory medications (such as aspirin, ibuprofen, or prednisone). H pyloriinfection can also cause chronic gastritis. Gastritis can cause a dull ache or burning pain in the upper abdomen. Other symptoms include nausea, vomiting, loss of appetite, and belching or bloating. Blood in the vomit or stools (red or black) is a sign of bleeding in the stomach. This requires immediate medical attention. Tests for H pyloriare used to screen for bacterial infection. If no infection is found, gastritis can be treated by stopping the cause and treating with antacids plus an acid kelly medication. If H pylori infection is found, antibiotics will also be prescribed. Persons 55 years and older may undergo other tests before treatment is started. Two common tests are used to evaluate your symptoms. An upper GI series is an x-ray taken after you drink a chalky liquid called barium. This coats the stomach and allows the doctor to view any problems in the stomach on the x-ray. Another test is called endoscopy, during which a long thin tube called an endoscope is passed down your throat to the stomach. A camera at the end of the scope allows the doctor to view inside the stomach to check the cause of your symptoms. Home Care: Take the prescribed acid kelly medication for the full course of treatment even if you begin to feel better sooner. This medication can take up to several days to fully control your symptoms. If you cant afford the prescribed medication, you can try xmwh-zrc-fchjfdt acid blockers, such as Pepcid AC, Tagamet, Zantac, or Aciphex. If these do not relieve your symptoms, a stronger acid-kelly can be tried, such as Prilosec OTC. If you have been prescribed an antibiotic to treat H pyloriinfection, finish the full course of medication. Do so even if you begin to feel better sooner. If you stop the medication too soon, the infection can return and be harder to treat. You can use antacids, such as Tums, Rolaids, Mylanta, or Maalox, for pain. This will be useful the first few days after starting acid blockers when the blockers havent started working yet. Follow the directions on the label. Liquid antacids may work better than tablets. Note that antacids can interfere with absorption of certain medications. Specifically, do not take Tagamet (cimetidine), Zantac (ranitidine), or Carafate (sucralfate) within 1 hour of taking an antacid. Talk with your pharmacist if you have any questions. Symptoms of gastritis can be worsened by certain foods. Limit or avoid fatty, fried, and spicy foods, as well as coffee, chocolate, mint, and foods with high acid content such as tomatoes and citrus fruit and juices (orange, grapefruit, lemon). Avoid alcohol, caffeine, and tobacco, which can delay healing. Avoid aspirin and anti-inflammatory medications such as ibuprofen (Advil, Motrin) and naproxen (Naprosyn, Aleve). Acetaminophen (Tylenol) is safe to use. Do not take more than the amount listed on the label. Follow Up with your doctor, or as advised by our staff. Further testing may be needed. If you do not improve over the next 4 days, contact your doctor. If you had an x-ray, CT scan, or ECG (electrocardiogram), it will be reviewed by a specialist. Youll be notified of any new findings that affect your care. Get Prompt Medical Attention if any of the following occur: Stomach pain gets worse or moves to the lower right abdomen (appendix area) Chest pain appears or gets worse, or spreads to the back, neck, shoulder, or arm Frequent vomiting (cant keep down liquids) Blood in the stool or vomit (red or black in color) Feeling weak or dizzy, fainting, or trouble breathing Fever of 100.4F (38C) or higher, or as directed by your healthcare provider Alcohol Intoxication Alcohol intoxication occurs when you drink alcohol faster than your liver can remove it from your system. Alcohol intoxication affects your judgment and coordination. Very high blood alcohol levels can cause coma, very slow breathing and even . If you drink alcohol every day, this may gradually cause permanent damage to your liver, brain, heart, pancreas and other organs. Alcohol use during may cause permanent damage to the growing baby. Home Care: Do not drink any more alcohol. DO NOT DRIVE until all effects of the alcohol have worn off. Get lots of rest over the next few days. Drink plenty of water and other non-alcoholic liquids. Try to eat regular meals. If you have been drinking heavily on a daily basis, you may go through alcohol withdrawl. This is also called the shakes or DTs. The usual symptoms last 3 to 4 days and may include nervousness, shakiness, nausea, sweating or sleeplessness. During this time, it is best that you stay with family or friends who can help and support you. You can also admit yourself to a residential detox program. If your symptoms are severe, contact your doctor for medicines to help. Follow Up: If alcohol is causing a problem in your life, these and other organizations can help you: Alcoholics Anonymous offers support through a self-help fellowship. There are no dues or fees. See the Yellow Pages and call for time and place of meetings. www.aa.org [employer] offers support to families of alcohol users. 306.294.3209 www.al-anon.org [employer] Alcoholism And Drug Dependence 246-328-5312 www.ncadd.org There are also inpatient or residential alcohol detox programs. Check the Internet or phonebook Yellow Pages under Drug Abuse & Treatment Centers. Get Prompt Medical Attention if any of the following occur: there) Hemorrhoids,External A hemorrhoid is a local swelling of the veins around the rectum. These most often occur from repeated forceful straining during bowel movements or heavy lifting. It may also occur in the last few months of . A hemorrhoid feels like a soft lump. It may itch from time to time. When it is inflamed it becomes hard and very painful. Home Care: SITZ BATHS: Sit in a tub filled with about 6 inches of hot water. Allow the water to run in order to keep it hot for a total of 10-15 minutes. Repeat this three times a day until pain is relieved. Keep your stools soft to avoid the need to strain when having a bowel movement. Unless another medicine was prescribed, try the following: IF YOU ARE CONSTIPATED: You may use vweu-aff-rvojkbb laxatives such as MILK OF MAGNESIA (mild acting) or, DULCOLAX (if stronger action is needed). IF YOU ARE NOT CONSTIPATED but stools are hard, try taking Colace (docusate sodium) which is a stool softener. This will soften stools without producing diarrhea. Drinking extra fluids may also help. The use of creams applied to the hemorrhoid itself, such as ANUSOL or PREPARATION H, will be helpful to reduce pain and itching, and speed healing. Prevention: Avoid straining on the toilet by keeping stools soft. Increasing FIBER in your diet (fruits, cereals, vegetables and grains) will promote healthy bowel movement. If this is not working, you may use METAMUCIL and similar products. These are cxcc-hiv-tvdayrm fiber supplements. You must drink extra fluids when taking these to avoid constipation. Follow Up with your doctor if you do not begin to respond to the above treatment within the next few days. Get Prompt Medical Attention if any of the following occur: Large amount of rectal bleeding (more than 1 cup of blood in 24 hours) Increasing rectal pain or rectal pain that continues for more than three days of treatment Weakness, dizziness or fainting Vomiting blood (red or black color) Omeprazole Magnesium Gastro-resistant tablet What is this medicine? OMEPRAZOLE (oh ME pray zol) prevents the production of acid in the stomach. It is used to treat the symptoms of heartburn. You can buy this medicine without a prescription. This product is not for long-term use, unless otherwise directed by your doctor or health lawn care technician. How should I use this medicine? Take this medicine by mouth. Follow the directions on the product label. If you are taking this medicine without a prescription, take one tablet every day. Do not use for longer than 14 days or repeat a course of treatment more often than every 4 months unless directed by a doctor or healthcare professional. Take your dose at regular intervals every 24 hours. Swallow the tablet whole with a drink of water. Do not crush, break or chew. This medicine works best if taken on an empty stomach 30 minutes before breakfast. If you are using this medicine with the prescription of your doctor or healthcare professional, follow the directions you were given. Do not take your medicine more often than directed. Talk to your nurse plastics regarding the use of this medicine in children. Special care may be needed. What side effects may I notice from receiving this medicine? Side effects that you should report to your doctor or health lawn care technician as soon as possible: allergic reactions like skin rash, itching or hives, swelling of the face, lips, or tongue bone, muscle or joint pain breathing problems chest pain or chest tightness dark yellow or brown urine diarrhea dizziness fast, irregular heartbeat feeling faint or lightheaded fever or sore throat muscle spasm palpitations redness, blistering, peeling or loosening of the skin, including inside the mouth seizures tremors unusual bleeding or bruising unusually weak or tired yellowing of the eyes or skin Side effects that usually do not require medical attention (Report these to your doctor or health lawn care technician if they continue or are bothersome.): constipation dry mouth headache loose stools nausea What may interact with this medicine? Do not take this medicine with any of the following medications: atazanavir clopidogrel nelfinavir This medicine may also interact with the following medications: ampicillin certain medicines for anxiety or sleep certain medicines that treat or prevent blood clots like warfarin cyclosporine diazepam digoxin disulfiram iron salts phenytoin prescription medicine for fungal or yeast infection like itraconazole, ketoconazole, voriconazole saquinavir tacrolimus What if I miss a dose? If you miss a dose, take it as soon as you can. If it is almost time for your next dose, take only that dose. Do not take double or extra doses. Where should I keep my medicine? Keep out of the reach of children. Store at room temperature between 20 and 25 degrees C (68 and 77 degrees F). Protect from light and moisture. Throw away any unused medicine after the expiration date. What should I tell my health care provider before I take this medicine? They need to know if you have any of these conditions: black or bloody stools chest pain difficulty swallowing have had heartburn for over 3 months have heartburn with dizziness, lightheadedness or sweating liver disease stomach pain unexplained weight loss vomiting with blood wheezing an unusual or allergic reaction to omeprazole, other medicines, foods, dyes, or preservatives or trying to get breast-feeding What should I watch for while using this medicine? It can take several days before your heartburn gets better. Check with your doctor or health lawn care technician if your condition does not start to get better, or if it gets worse. Do not treat diarrhea with over the counter products. Contact your doctor if you have diarrhea that lasts more than 2 days or if it is severe and watery. Do not treat yourself for heartburn with this medicine for more than 14 days in a row. You should only use this medicine for a 2-week treatment period once every 4 months. If your symptoms return shortly after your therapy is complete, or within the 4 month time frame, call your doctor or health lawn care technician. You have been given the following additional information: Gastritis (Adult) Alcohol Intoxication Hemorrhoids Omeprazole Magnesium Gastro-resistant tablet (Electronically signed by Wing Adame MD 11/14/2016 18:59)
--- NOTE | 2016-11-14 19:00 | ED MED RECONCILIATION SUMMARY ---
Patient: GWYN GUILLEN Medication Reconciliation Report [facility] VisitID: [id number] [address] [place] [address] 51y, F Registration Date/Time: 11/14/2016 Weight: 56.6 kg Height/Length: 61 in. BMI: 23.6 ALLERGIES: No Known Drug Allergy The patient's Home Medications are listed below: THE FOLLOWING MEDICATIONS NEED TO BE RECONCILED: AmLODIPine Besylate Oral Atorvastatin Calcium Oral Citalopram Hydrobromide Oral Lisinopril Oral The source(s) of the original Home Medication information: Not obtained. The following Medications were given to the patient in the Emergency Department: PROTONIX [IVP] IVP 80 mg, administered: 11/14/2016 10:43:00 AM GI COCKTAIL WHITE [PO] PO 30 mL, administered: 11/14/2016 11:33:00 AM The following Medications were prescribed to the patient: Omeprazole 20 mg capsules: Take 1 orally once daily. Dispense fifteen (15). No refills. -- Wing Adame MD
--- NOTE | 2016-11-14 19:00 | ED MAR SUMMARY ---
..... Medication Administration Record [facility] [address] [place] [address] Patient: GWYN GUILLEN Visit ID: [id number] 51y, F Weight: 56.6 kg Height/Length: 61 in BMI: 23.6 ALLERGIES: No Known Drug Allergy Given 10:43 11/14/2016 Daniel Chaparro R.N. Medication Administered: PROTONIX [IVP] (PANTOPRAZOLE SODIUM), Dose: 80 mg IVP over 10 minute(s), Site: #1 right hand. Medication Ordered: Protonix IVP 80mg 80 mg (Mix in NS 20ml over 4min). Given 11:33 11/14/2016 Daniel Chaparro R.N. Medication Administered: GI COCKTAIL WHITE [PO] (SIMETHICONE), Dose: 30 mL Oral Suspension PO. Medication Ordered: GI Cocktail WHITE PO 30 mL with Lidocaine Viscous Mouth/Throat 15 mL, Maalox Plus Oral 15 mL.
--- NOTE | 2016-11-14 19:00 | ED MED RECONCILIATION SUMMARY ---
Patient: GWYN GUILLEN Medication Reconciliation Report [facility] VisitID: [id number] [address] [place] [address] 51y, F Registration Date/Time: 11/14/2016 Weight: 56.6 kg Height/Length: 61 in. BMI: 23.6 ALLERGIES: No Known Drug Allergy The patient's Home Medications are listed below: THE FOLLOWING MEDICATIONS NEED TO BE RECONCILED: AmLODIPine Besylate Oral Atorvastatin Calcium Oral Citalopram Hydrobromide Oral Lisinopril Oral The source(s) of the original Home Medication information: Not obtained. The following Medications were given to the patient in the Emergency Department: PROTONIX [IVP] IVP 80 mg, administered: 11/14/2016 10:43:00 AM GI COCKTAIL WHITE [PO] PO 30 mL, administered: 11/14/2016 11:33:00 AM The following Medications were prescribed to the patient: Omeprazole 20 mg capsules: Take 1 orally once daily. Dispense fifteen (15). No refills. -- Wing Adame MD
--- NOTE | 2016-11-14 19:00 | ED MAR SUMMARY ---
..... Medication Administration Record [facility] [address] [place] [address] Patient: GWYN GUILLEN Visit ID: [id number] 51y, F Weight: 56.6 kg Height/Length: 61 in BMI: 23.6 ALLERGIES: No Known Drug Allergy Given 10:43 11/14/2016 Daniel Chaparro R.N. Medication Administered: PROTONIX [IVP] (PANTOPRAZOLE SODIUM), Dose: 80 mg IVP over 10 minute(s), Site: #1 right hand. Medication Ordered: Protonix IVP 80mg 80 mg (Mix in NS 20ml over 4min). Given 11:33 11/14/2016 Daniel Chaparro R.N. Medication Administered: GI COCKTAIL WHITE [PO] (SIMETHICONE), Dose: 30 mL Oral Suspension PO. Medication Ordered: GI Cocktail WHITE PO 30 mL with Lidocaine Viscous Mouth/Throat 15 mL, Maalox Plus Oral 15 mL.
== END 2016-11-14 12:10 | disposition home or self-care (01) ==
LOC: ED SRH 09:39
DX: K29.20 Alcoholic gastritis without bleeding (principal); F10.10 Alcohol abuse, uncomplicated; K64.4 Residual hemorrhoidal skin tags; E78.5 Hyperlipidemia, unspecified; E07.9 Disorder of thyroid, unspecified; I10 Essential (primary) hypertension; Z79.899 Other long term (current) drug therapy; F17.210 Nicotine dependence, cigarettes, uncomplicated
CPT/HCPCS: 90001; 90004; 90100; 90155; 91004; 92010; 92235; 92530; 94001; 94060; 95059